=== PATIENT | female | born 1990 | race Two or more races ===

== ENCOUNTER 2017-02-15 23:34 | Emergency (ER) | payer MEDICAID, OTHER ==
[~2017-02-15] VITALS: Ht 154.9 cm; Wt 56.7 kg
[2017-02-16 01:01] LABS: Basophils # (auto) 0 uL; Basophils % (auto) 0.5 % (0.0-2.0); Eosinophils # (auto) 0.1 uL; Eosinophils % (auto) 1.5 % (0.0-7.0); Hematocrit 39.3 % (36.0-46.0); Lymphocytes # (auto) 1.6 uL; Lymphocytes % (auto) 16.5 % (10.0-50.0); Mean Corpuscular Hemoglobin 30.4 pg (28.0-32.0); Mean Corpuscular Volume 92.1 fL (80.0-100.0); Mean Platelet Volume 8.6 fL (7.4-10.4); Monocytes # (auto) 0.7 uL; Monocytes % (auto) 7.4 % (0.0-12.0); Neutrophils # (auto) 7.5 uL; Neutrophils % (auto) 74.1 % (37.0-80.0); Platelet Count (auto) 297 10^3/uL (140-450); Red Cell Distribution Width 13.4 % (11.6-16.0); White Blood Cell 9.9 10^3/uL (4.4-10.8)
[2017-02-16 01:20] LABS: Albumin 3.7 g/dL (3.4-5.0); BUN/Creatinine Ratio 14.5; Calcium 8.8 mg/dL (8.5-10.1); Potassium 3.4 mmol/L (3.5-5.1)
[2017-02-16 01:29] LABS: Bilirubin, Total 0.8 mg/dL (0.2-1.0); Total Protein 7.1 g/dL (6.4-8.2)
[2017-02-16 03:33] VITALS: BP 124/66
== END 2017-02-16 04:23 | disposition home or self-care (01) ==
LOC: EDBD 23:34 → ER 23:39
DX: F41.9 Anxiety disorder, unspecified (principal)
CPT/HCPCS: 36415; 71010; 80053; 84443; 85025; 93005

== ENCOUNTER 2020-03-23 05:10 | Emergency (ER) | payer SELFPAY ==
[~2020-03-23] VITALS: Ht 154.9 cm; Wt 77.1 kg
[2020-03-23 05:24] VITALS: BP 135/90
[2020-03-23] MEDS ORDERED: diphenhdrAMINE HCL 50 MG/1 ML VL IM ONE (07:15)
== END 2020-03-23 07:58 | disposition home or self-care (01) ==
LOC: ER 05:10
DX: F41.9 Anxiety disorder, unspecified (principal)
CPT/HCPCS: 71045; 96372; 99283; J1200

== ENCOUNTER 2021-03-29 02:36 | Emergency (ER) | payer MEDICAID ==
[~2021-03-29] VITALS: Ht 154.9 cm; Wt 68.0 kg
[2021-03-29] MEDS ORDERED: IBUPROFEN 600 MG TAB PO ONE (03:15)
[2021-03-29 11:05] VITALS: BP 132/78
== END 2021-03-29 11:13 | disposition home or self-care (01) ==
LOC: ER 02:36
DX: S69.81XA Other specified injuries of right wrist, hand and finger(s), initial encounter (principal); F41.9 Anxiety disorder, unspecified; Y04.2XXA Assault by strike against or bumped into by another person, initial encounter; Y93.89 Activity, other specified; Y92.89 Other specified places as the place of occurrence of the external cause; Y99.8 Other external cause status
CPT/HCPCS: 29125; 73110

== ENCOUNTER 2021-04-21 02:11 | Emergency (ER) | payer MEDICAID ==
[~2021-04-21] VITALS: Ht 154.9 cm; Wt 59.0 kg
[2021-04-21] MEDS ORDERED: ONDANSETRON ODT 4 MG TAB PO ONE (05:00)
[2021-04-21] MEDS ORDERED: HYDROcodone-ACET 10/325MG TAB PO ONE (05:00)
[2021-04-21 06:33] VITALS: BP 142/87
== END 2021-04-21 06:40 | disposition home or self-care (01) ==
LOC: ER 02:11
DX: M25.531 Pain in right wrist (principal)
CPT/HCPCS: Q0162

== ENCOUNTER 2021-06-15 04:02 | Emergency (ER) | payer MEDICAID ==
[~2021-06-15] VITALS: Ht 154.9 cm; Wt 54.4 kg
[2021-06-15 06:56] VITALS: BP 142/88
== END 2021-06-15 07:04 | disposition home or self-care (01) ==
LOC: ER 04:02
DX: F41.8 Other specified anxiety disorders (principal)

== ENCOUNTER 2021-09-22 21:36 | Emergency (ER) | payer MEDICAID ==
[~2021-09-22] VITALS: Ht 154.9 cm; Wt 54.4 kg
[2021-09-23 01:50] VITALS: BP 100/75
[2021-09-23 02:43] LABS: Basophils # (auto) 0.1 10 ^3/uL (0-0.2); Basophils % (auto) 0.7 % (0.0-2.0); Eosinophils # (auto) 0.1 10 ^3/uL (0-0.8); Hemoglobin 14.4 g/dL (12.2-16.2); Lymphocytes # (auto) 2.1 10 ^3/uL (0.4-5.4); Lymphocytes % (auto) 24.1 % (10.0-50.0); Mean Corpuscular Hemoglobin 32.7 pg (28.0-32.0); Mean Corpuscular Hgb Conc. 34.2 g/dL (32.0-36.0); Mean Corpuscular Volume 95.6 fL (80.0-100.0); Monocytes # (auto) 0.5 10 ^3/uL (0-1.3); Monocytes % (auto) 5.9 % (0.0-12.0); Neutrophils # (auto) 5.9 10 ^3/uL (1.6-8.6); Neutrophils % (auto) 68.3 % (37.0-80.0); Nucleated Red Blood Cells % 0.1 %; Red Blood Cells 4.39 10^6/uL (4.0-5.20); Red Cell Distribution Width 13.5 % (11.8-14.3); White Blood Cell 8.6 10^3/uL (4.4-10.8)
[2021-09-23 02:59] LABS: Albumin 4.6 g/dL (3.4-5.0); Anion Gap 8 (5-15); Aspartate Aminotransferase 12 U/L (15-37); BUN/Creatinine Ratio 24.6; Blood Alcohol < 3.0 mg/dL (0-5); Blood Urea Nitrogen 14 mg/dL (7-18); Calcium 8.8 mg/dL (8.5-10.1); Carbon Dioxide 23 mmol/L (21-32); Chloride 106 mmol/L (98-107); GFR African American 162 mL/min; GFR Non-African American 134 mL/min; Glucose 91 mg/dL (74-106); Potassium 4.1 mmol/L (3.5-5.1); Sodium 137 mmol/L (136-145)
[2021-09-23 03:02] LABS: Alanine Aminotransferase 28 U/L (13-56); Alkaline Phosphatase 63 U/L (45-117); Total Protein 8.1 g/dL (6.4-8.2)
[2021-09-23 03:56] LABS: Urine Bacteria FEW /hpf (None Seen); Urine Blood 2+ /uL (Negative); Urine Mucus MANY (None Seen); Urine Specific Gravity 1.034 (1.001-1.035); Urine WBC 5 /hpf (0 - 5)
[2021-09-23 04:08] LABS: Amphetamine Screen, Urine NEGATIVE (NEGATIVE); Barbiturate Scree,Urine NEGATIVE (NEGATIVE); Benzodiazephine Screen, Urine NEGATIVE (NEGATIVE); Cannabinoid Screen, Urine NEGATIVE (NEGATIVE); Cocaine Screen, Urine NEGATIVE (NEGATIVE); Opiate Scree,Urine NEGATIVE (NEGATIVE); Phencyclidine Screen, Urine NEGATIVE (NEGATIVE)
[2021-09-23] MEDS ORDERED: cefTRIAXone 1GM/50ML D5W 50 ML IV ONE (09:00)
== END 2021-09-23 09:56 | disposition left against medical advice (07) ==
LOC: ER 21:37
DX: R45.851 Suicidal ideations (principal); F41.8 Other specified anxiety disorders; N39.0 Urinary tract infection, site not specified; Z20.822 Contact with and (suspected) exposure to COVID-19
CPT/HCPCS: 36415; 71046; 80053; 80307; 80320; 81001; 84702; 85025; 87426; 87804

== ENCOUNTER 2022-04-11 00:18 | Emergency (ER) | payer MEDICAID ==
[~2022-04-11] VITALS: Ht 154.9 cm; Wt 54.4 kg
[2022-04-11 01:06] LABS: Basophils # (auto) 0.1 10 ^3/uL (0-0.2); Eosinophils # (auto) 0.2 10 ^3/uL (0-0.8); Eosinophils % (auto) 2.7 % (0.0-7.0); Hematocrit 41.8 % (36.0-46.0); Hemoglobin 14.5 g/dL (12.2-16.2); Lymphocytes # (auto) 1.8 10 ^3/uL (0.4-5.4); Lymphocytes % (auto) 21.8 % (10.0-50.0); Mean Corpuscular Hemoglobin 32.8 pg (28.0-32.0); Mean Corpuscular Hgb Conc. 34.5 g/dL (32.0-36.0); Monocytes # (auto) 0.5 10 ^3/uL (0-1.3); Monocytes % (auto) 6.2 % (0.0-12.0); Neutrophils # (auto) 5.7 10 ^3/uL (1.6-8.6); Neutrophils % (auto) 68.3 % (37.0-80.0); Red Blood Cells 4.41 10^6/uL (4.0-5.20); Red Cell Distribution Width 13.4 % (11.8-14.3); White Blood Cell 8.3 10^3/uL (4.4-10.8)
[2022-04-11 01:22] LABS: Salicylate < 1.7 mg/dL (2.8-20.0)
[2022-04-11 01:25] LABS: Alanine Aminotransferase 30 U/L (13-56); Albumin 4.3 g/dL (3.4-5.0); Anion Gap 7 (5-15); Aspartate Aminotransferase 15 U/L (15-37); BUN/Creatinine Ratio 15.6; Blood Alcohol < 3.0 mg/dL (0-5); Blood Urea Nitrogen 14 mg/dL (7-18); Calcium 9.5 mg/dL (8.5-10.1); Carbon Dioxide 26 mmol/L (21-32); Chloride 106 mmol/L (98-107); GFR African American 95 mL/min; GFR Non-African American 79 mL/min; Glucose 121 mg/dL (74-106); Sodium 139 mmol/L (136-145)
[2022-04-11 01:27] LABS: Alkaline Phosphatase 55 U/L (45-117); Bilirubin, Total 0.9 mg/dL (0.2-1.0); Total Protein 8.1 g/dL (6.4-8.2)
[2022-04-11 01:36] LABS: Acetaminophen < 2.0 ug/mL (10-30)
[2022-04-11] MEDS ORDERED: ALPRAZolam 0.5 MG TAB PO ONE (01:45)
[2022-04-11 02:34] LABS: Urine Bacteria FEW /hpf (None Seen); Urine Blood 2+ /uL (Negative); Urine Hyaline Cast FEW /lpf (0 - 2); Urine Mucus FEW (None Seen); Urine Specific Gravity 1.028 (1.001-1.035); Urine WBC 5 /hpf (0 - 5)
[2022-04-11] MEDS ORDERED: TRAZ-181 PO (17:21)
[2022-04-11] MEDS ORDERED: ESCI5TAB PO (17:21)
[2022-04-11] MEDS ORDERED: HYDR50CA PO (17:21)
[2022-04-11 17:31] VITALS: BP 110/70
== END 2022-04-11 17:45 | disposition home or self-care (01) ==
LOC: ER 00:18
DX: S70.311A Abrasion, right thigh, initial encounter (principal); F41.9 Anxiety disorder, unspecified; F32.9 Major depressive disorder, single episode, unspecified; F12.10 Cannabis abuse, uncomplicated; R94.31 Abnormal electrocardiogram [ECG] [EKG]; Z32.02 Encounter for pregnancy test, result negative; Z20.822 Contact with and (suspected) exposure to COVID-19; X78.8XXA Intentional self-harm by other sharp object, initial encounter; Y93.89 Activity, other specified; Y92.89 Other specified places as the place of occurrence of the external cause; Y99.8 Other external cause status
CPT/HCPCS: 36415; 71045; 80053; 80320; 80329; 81001; 81025; 85025; 93005

== ENCOUNTER 2022-04-20 19:16 | Emergency (ER) | payer MEDICAID ==
[~2022-04-20] VITALS: Ht 154.9 cm; Wt 59.0 kg
[~2022-04-20 19:16] MED LIST: ESCI5TAB PO; HYDR50CA PO; TRAZ-181 PO
[2022-04-20 20:00] VITALS: BP 110/81
[2022-04-20] MEDS ORDERED: LORazepam 0.5 MG TAB PO ONE (20:00)
[2022-04-20] MEDS ORDERED: ESCI5TAB PO (20:01)
== END 2022-04-20 19:46 | disposition home or self-care (01) ==
LOC: ER 19:16
DX: F41.8 Other specified anxiety disorders (principal); Z76.0 Encounter for issue of repeat prescription; Z79.899 Other long term (current) drug therapy

== ENCOUNTER 2022-07-25 22:11 | Emergency (ER) | payer MEDICAID ==
[~2022-07-25] VITALS: Ht 154.9 cm; Wt 59.0 kg
[2022-07-25 22:43] VITALS: BP 119/84
== END 2022-07-26 00:23 | disposition left against medical advice (07) ==
LOC: ER 22:11
DX: J02.9 Acute pharyngitis, unspecified (principal); Z53.21 Procedure and treatment not carried out due to patient leaving prior to being seen by health care provider

== ENCOUNTER 2022-11-15 10:43 | Emergency (ER) | payer MEDICAID ==
[~2022-11-15] VITALS: Ht 154.9 cm; Wt 59.0 kg
[2022-11-15 11:00] LABS: Basophils # (auto) 0.1 10 ^3/uL (0-0.2); Basophils % (auto) 1.2 % (0.0-2.0); Eosinophils # (auto) 0.2 10 ^3/uL (0-0.8); Eosinophils % (auto) 3.1 % (0.0-7.0); Hemoglobin 13.4 g/dL (12.2-16.2); Lymphocytes # (auto) 2.4 10 ^3/uL (0.4-5.4); Lymphocytes % (auto) 31.3 % (10.0-50.0); Mean Corpuscular Hemoglobin 31.4 pg (28.0-32.0); Mean Corpuscular Hgb Conc. 33.6 g/dL (32.0-36.0); Mean Corpuscular Volume 93.4 fL (80.0-100.0); Monocytes # (auto) 0.6 10 ^3/uL (0-1.3); Monocytes % (auto) 7.9 % (0.0-12.0); Neutrophils # (auto) 4.4 10 ^3/uL (1.6-8.6); Neutrophils % (auto) 56.5 % (37.0-80.0); Nucleated Red Blood Cells % 0.2 %; Red Blood Cells 4.28 10^6/uL (4.0-5.20); Red Cell Distribution Width 13.5 % (11.8-14.3); White Blood Cell 7.7 10^3/uL (4.4-10.8)
[2022-11-15 11:14] LABS: Albumin 4.1 g/dL (3.4-5.0); Calcium 9.1 mg/dL (8.5-10.1); Magnesium 2.6 mg/dL (1.6-2.6); Potassium 4.1 mmol/L (3.5-5.1)
[2022-11-15 11:17] LABS: BUN/Creatinine Ratio 22.4; Bilirubin, Total 0.7 mg/dL (0.2-1.0); Total Protein 7.6 g/dL (6.4-8.2)
[2022-11-15 11:20] LABS: INR 0.97 (0.9-1.15); Partial Thromboplastin Time 31.1 sec (24.6-33.4)
[2022-11-15 12:14] LABS: Urine Bacteria FEW /hpf (None Seen); Urine Blood 1+ /uL (Negative); Urine Mucus FEW (None Seen); Urine Specific Gravity 1.026 (1.001-1.035); Urine WBC 2 /hpf (0 - 5)
[2022-11-15 13:39] VITALS: BP 105/75
== END 2022-11-15 13:41 | disposition home or self-care (01) ==
LOC: ER 10:48
DX: R07.89 Other chest pain (principal); F12.10 Cannabis abuse, uncomplicated; Z79.899 Other long term (current) drug therapy; Z32.02 Encounter for pregnancy test, result negative
CPT/HCPCS: 36415; 71046; 80053; 81001; 81025; 83735; 84484; 85025; 85610; 85730; 93005

== ENCOUNTER 2024-05-28 03:58 | Emergency (ER) | payer MEDICAID ==
[~2024-05-28] VITALS: Ht 180.3 cm; Wt 69.4 kg
[2024-05-28 06:36] VITALS: BP 128/79; PULSE 72; RESP 18; TEMP 98.8; O2SAT 96
[2024-05-28] MEDS: KETOROLAC TROMETH 60MG/2ML VIAL IM ONE (06:40)
[2024-05-28] MEDS ORDERED: SUMA50TA2 PO (07:12)
[2024-05-28] MEDS ORDERED: CLIN1CAP70 PO (07:12)
== END 2024-05-28 07:25 | disposition home or self-care (01) ==
LOC: ER 03:58
DX: G44.209 Tension-type headache, unspecified, not intractable (principal); K04.7 Periapical abscess without sinus; F41.9 Anxiety disorder, unspecified; F32.9 Major depressive disorder, single episode, unspecified; F15.90 Other stimulant use, unspecified, uncomplicated; Z79.899 Other long term (current) drug therapy
CPT/HCPCS: 96372; 99283; J1885

== ENCOUNTER 2024-09-03 23:20 | Emergency (ER) | payer MEDICAID ==
[~2024-09-03] VITALS: Ht 154.9 cm; Wt 73.1 kg
[~2024-09-03 23:20] MED LIST changes: +CLIN1CAP70 PO; +SUMA50TA2 PO
--- NOTE | 2024-09-03 23:50 | ED.PDOC ---
History of Present Illness HPI Comments 33-year-old female came to ER for flu-like symptoms. Patient states for the past week, she has been having flu-like symptoms including fever, chills, weakness, dizziness, body malaise, muscle and joint pains, chest discomfort, shortness of breath, cough, congestion, and throat pain. Persistence and worsening prompted checkup. Chief Complaint: Flu like Time Seen by MD: 23:50 Primary Care Provider: NONE Reviewed Notes: Nurses Notes Allergies: Coded Allergies: NO KNOWN ALLERGIES (Unverified , 03/29/21) Home Meds Active Scripts Sumatriptan Succinate (Imitrex) 50 Mg Tab, 1 TAB PO BID, #14 TAB Prov:ROSALIE CHOUDHARY 05/28/24 Clindamycin Hcl (Clindamycin Hcl) 300 Mg Cap, 1 CAP PO TID, #21 CAP Prov:ROSALIE CHOUDHARY 05/28/24 Escitalopram Oxalate (Lexapro) 5 Mg Tab, 1 TAB PO DAILY, #30 TAB 1 Refill Prov:ARIES LOPEZ MD 04/20/22 Hydroxyzine Pamoate (Vistaril) 50 Mg Cap, 50 MG PO Q6HPRN PRN for 7 Days, #28 CAP 0 Refills Prov:BEATRICE ABREU MD 04/11/22 Trazodone HCl (Trazodone Hydrochloride) 50 Mg Tab, 50 MG PO QHS for 7 Days, #7 TAB 0 Refills Prov:BEATRICE ABREU MD 04/11/22 Escitalopram Oxalate (Lexapro) 5 Mg Tab, 1 TAB PO DAILY for 7 Days, #7 TAB 0 Refills Prov:BEATRICE ABREU MD 04/11/22 Information Source: Patient Mode of Arrival: Ambulatory Severity: Moderate Timing: Days Duration: Intermittent Prehospital treatment: None Past Medical History PAST MEDICAL HISTORY: Anxiety, Depression Surgical History: Denies all surgeries LADLE PATCHER History: No Pertinent LADLE PATCHER History Family History Family History: Family hx of DM Social History Smoker: Non-Smoker Alcohol: Denies ETOH Use Drugs: Denies Drug Use Lives In: Home Constitutional: reports: chills, diaphoresis, fatigue, fever, malaise, weakness ; denies: sweats, others EENTM: reports: nose congestion, throat pain; denies: blurred vision, double vision, ear bleeding, ear discharge, ear drainage, ear pain, ear ringing, eye pain, eye redness, hearing loss, mouth pain, mouth swelling, nasal discharge, nose bleeding, nose pain, photophobia, tearing, throat swelling, voice changes, others Respiratory: reports: cough, SOB at rest; denies: hemoptysis, orthopnea, s hortness of breath, SOB with excertion, stridor, wheezing, others Cardiovascular: reports: chest pain; denies: dizzy spells, diaphoresis, Dyspnea on exertion, edema, irregular heart beat, left arm pain, lightheadedness, palpitations, PND, syncope, others Gastrointestinal: reports: nausea; denies: abdomen distended, abdominal pain, blood streaked bowels, constipated, diarrhea, dysphagia, difficulty swallowing, hematemesis, melena, poor appetite, poor fluid intake, rectal bleeding, rectal pain, vomiting, others Genitourinary: denies: abnormal vagina bleeding, burning, dyspareunia, dysuria, flank pain, frequency, hematuria, incontinence, pain, , vagina discharge, urgency, others Neurological: denies: dizziness, fainting, headache, left sided numbness, left sided weakness, numbness, paresthesia, pre-existing deficit, right sided numbness, right sided weakness, seizure, speech problems, tingling, tremors, weakness, others Musculoskeletal: denies: back pain, gout, joint pain, joint swelling, muscle pain, muscle stiffness, neck pain, others Integumetry: denies: bruises, change in color, change in hair/nails, dryness, laceration, lesions, lumps, rash, wounds, others Allergic/Immunocompromised: denies: Difficulty Healing, Frequent Infections, Hives, Itching, others Hematologic/Lymphatic: denies: anemia, blood clots, easy bleeding, easy bruising, swollen glands, others Endocrine: denies: excessive hunger, excessive sweating, excessive thirst, excessive urination, flushing, intolerance to cold, intolerance to heat, unexplained weight gain, unexplained weight loss, others Psychiatric: denies: anxiety, bipolar disorder, depression, hopeless, panic disorder, schizophrenia, sleepless, suicidal, others Physical Exam General Appearance: No Apparent Distress, Normal HEENT: Normal ENT Inspection, Pharynx Normal, TMs Normal Neck: Full Range of Motion, Non-Tender, Normal, Normal Inspection Respiratory: Chest Non-Tender, Lungs Clear, No Accessory Muscle Use, No Respiratory Distress, Normal Breath Sounds Cardiovascular: No Edema, No JVD, No Murmur, No Gallop, Normal Peripheral Pulses, Regular Rate/Rhythm Breast Exam: Deferred Gastrointestinal: No Organomegaly, Non Tender, No Pulsatile Mass, Normal Bowel Sounds, Soft Genitalia: Deferred Pelvic: Deferred Rectal: Deferred Extremities: No calf tenderness, Normal capillary refill, Normal inspection, Normal range of motion, Non-tender, No pedal edema Musculoskeletal : Apperance: Normal Neurologic: Alert, 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 Was a procedure done?: No Differential Dx Considerations may include: Anemia, electrolyte imbalance, influenza, COVID-19, upper respiratory infection X-Ray, Labs, Meds, VS Vital Signs Date Time Temp Pulse Resp B/P (MAP) Pulse Ox O2 Delivery O2 Flow Rate FiO2 09/04/24 00:05 98.5 100 18 127/88 (101) 96 98.5 09/04/24 00:05 18 Room Air* 0 21 09/03/24 23:33 98.5 100 18 127/88 (101) 96 Lab Test 09/04/24 00:15 09/03/24 23:30 Range/Units Influenza Type A Antigen Negative Negative Influenza Type B Antigen Positive Negative SARS-CoV-2 Antigen (Rapid) Negative NEGATIVE White Blood Count 3.9 L 4.4-10.8 10^3/uL Red Blood Count 4.24 4.0-5.20 10^6/uL Hemoglobin 14.0 12.2-16.2 g/dL Hematocrit 40.5 36.0-46.0 % Mean Corpuscular Volume 95.6 80.0-100.0 fL Mean Corpuscular Hemoglobin 33.1 H 28.0-32.0 pg Mean Corpuscular Hemoglobin Concent 34.6 32.0-36.0 g/dL Red Cell Distribution Width 13.4 11.8-14.3 % Platelet Count 234 140-450 10^3/uL Mean Platelet Volume 8.6 6.9-10.8 fL Neutrophils (%) (Auto) 56.4 37.0-80.0 % Lymphocytes (%) (Auto) 28.6 10.0-50.0 % Monocytes (%) (Auto) 12.6 H 0.0-12.0 % Eosinophils (%) (Auto) 0.9 0.0-7.0 % Basophils (%) (Auto) 1.5 0.0-2.0 % Neutrophils # (Auto) 2.2 1.6-8.6 10 ^3/uL Lymphocytes # (Auto) 1.1 0.4-5.4 10 ^3/uL Monocytes # (Auto) 0.5 0-1.3 10 ^3/uL Eosinophils # (Auto) 0 0-0.8 10 ^3/uL Basophils # (Auto) 0.1 0-0.2 10 ^3/uL Nucleated Red Blood Cells 0.1 % Sodium Level 138 136-145 mmol/L Potassium Level 3.6 3.5-5.1 mmol/L Chloride Level 104 98-107 mmol/L Carbon Dioxide Level 28 20-31 mmol/L Anion Gap 6 5-15 Blood Urea Nitrogen 7 L 9-23 mg/dL Creatinine 0.80 0.550-1.02 mg/dL Glomerular Filtration Rate Calc 101 >90 mL/min BUN/Creatinine Ratio 8.8 L 10.0-20.0 Serum Glucose 101 74-106 mg/dL Calcium Level 9.9 8.7-10.4 mg/dL Current Medications Medications (Trade) Dose Ordered Sig/Radha Route Start Time Stop Time Status Last Admin Famotidine (Pepcid Tablet) 20 mg ONCE ONCE PO 09/03/24 23:45 09/03/24 23:48 DC 09/04/24 00:04 Acetaminophen (Tylenol Tablet) 650 mg ONCE ONCE PO 09/03/24 23:45 09/03/24 23:48 DC 09/04/24 00:04 Ondansetron HCl (Zofran Po) 4 mg ONCE ONCE PO 09/03/24 23:45 09/03/24 23:48 DC 09/04/24 00:04 Ketorolac Tromethamine (Toradol Injection) 15 mg ONCE ONCE IM 09/03/24 23:45 09/03/24 23:48 DC 09/04/24 00:05 Time of 1ST Reevaluation: 23:46 Reevaluation 1ST: Unchanged Patient Education/Counseling: Diagnosis, Treatment Family Education/Counseling: No Family Present Departure 1 Departure Time of Disposition: 01:14 (Patient is positive with flu B. we will discharge patient home with outpatient follow up) Impression: Primary Impression: Influenza B Additional Impression: Viral syndrome Disposition: 01 HOME / SELF CARE / HOMELESS Condition: Stable Additional Instructions: You have influenza B. It is important to stay well rested and well hydrated. You can take Tylenol and Motrin as needed for pain and fever. For a sore throat you can drink warm tea with honey. You can take [id number] pseudoephedrine for nasal congestion. He should follow up with your regular doctor within 1 week to ensure you are doing better. If your symptoms worsen or you have any other concerns please return to the emergency room. Discharged With: Self Critical Care Note Critical Care Time?: No Stability Stability form required: No Heart Score Heart Score: Heart Score Response (Comments) Value History N/A 0 EKG N/A 0 Age N/A 0 Risk Factors N/A 0 Troponin N/A 0 Total 0 I personally scribed for RYAN WILKES MD ([email or web address]) on 09/03/24 at 23:50. Electronically submitted by Juan Redmond ([email or web address]). RYAN WILKES MD Sep 03, 2024 23:50
[2024-09-04 00:03] LABS: Basophils # (auto) 0.1 10 ^3/uL (0-0.2); Basophils % (auto) 1.5 % (0.0-2.0); Eosinophils # (auto) 0 10 ^3/uL (0-0.8); Eosinophils % (auto) 0.9 % (0.0-7.0); Hematocrit 40.5 % (36.0-46.0); Lymphocytes # (auto) 1.1 10 ^3/uL (0.4-5.4); Lymphocytes % (auto) 28.6 % (10.0-50.0); Mean Corpuscular Hemoglobin 33.1 pg (28.0-32.0); Mean Corpuscular Hgb Conc. 34.6 g/dL (32.0-36.0); Mean Corpuscular Volume 95.6 fL (80.0-100.0); Monocytes # (auto) 0.5 10 ^3/uL (0-1.3); Monocytes % (auto) 12.6 % (0.0-12.0); Neutrophils # (auto) 2.2 10 ^3/uL (1.6-8.6); Neutrophils % (auto) 56.4 % (37.0-80.0); Nucleated Red Blood Cells % 0.1 %; Platelet Count (auto) 234 10^3/uL (140-450); Red Blood Cells 4.24 10^6/uL (4.0-5.20); Red Cell Distribution Width 13.4 % (11.8-14.3); White Blood Cell 3.9 10^3/uL (4.4-10.8)
[2024-09-04] MEDS: ACETAMINOPHEN 325 MG TAB PO ONE (00:04)
[2024-09-04] MEDS: FAMOTIDINE 20 MG TAB PO ONE (00:04)
[2024-09-04] MEDS: ONDANSETRON ODT 4 MG TAB PO ONE (00:04)
[2024-09-04 00:05] VITALS: BP 127/88; PULSE 100; RESP 18; TEMP 98.5; O2SAT 96
[2024-09-04] MEDS: KETOROLAC TROMETH 30 MG/ML 1ML VIAL IM ONE (00:05)
[2024-09-04 00:13] LABS: Chloride 104 mmol/L (98-107); Potassium 3.6 mmol/L (3.5-5.1); Sodium 138 mmol/L (136-145)
[2024-09-04 00:14] LABS: Anion Gap 6 (5-15); Calcium 9.9 mg/dL (8.7-10.4); Carbon Dioxide 28 mmol/L (20-31)
[2024-09-04 00:19] LABS: BUN/Creatinine Ratio 8.8 (10.0-20.0); Blood Urea Nitrogen 7 mg/dL (9-23); Glucose 101 mg/dL (74-106)
[2024-09-04 00:52] LABS: COVID19 ANTIGEN SOFIA FIA NEGATIVE (NEGATIVE)
[2024-09-04 00:54] LABS: Rapid Influenza A Negative (Negative)
[2024-09-04 00:56] LABS: Rapid Influenza B Positive (Negative)
--- NOTE | 2024-09-04 01:03 | DVH ---
Procedure: XY CHEST TWO VIEWS ROUTINE 09/04/2024 12:37 AM Indication: chest pain, cough. Comparison: CHEST TWO VIEWS ROUTINE on DOS: 11/15/22, CXR2 on DOS: 11/15/22, CHEST TWO VIEWS ROUTINE on DOS: 09/22/21 TECHNIQUE: XY CHEST TWO VIEWS ROUTINE FINDINGS: Medical devices: None. Cardiomediastinal: The heart is normal in size. Pulmonary vasculature is within normal limits. Lungs: No focal pulmonary opacity is seen. The costophrenic angles are clear. No pneumothorax. Bones/soft tissues: No acute abnormality is noted. IMPRESSION: No acute cardiopulmonary disease.
== END 2024-09-04 01:30 | disposition home or self-care (01) ==
LOC: ER 23:20
DX: J10.1 Influenza due to other identified influenza virus with other respiratory manifestations (principal); F41.9 Anxiety disorder, unspecified; F32.A Depression, unspecified; Z79.899 Other long term (current) drug therapy; Z20.822 Contact with and (suspected) exposure to COVID-19
CPT/HCPCS: 36415; 71046; 80048; 85025; 87426; 87804; 96372; 99284; J1885; Q0162

== ENCOUNTER 2025-02-05 03:50 | Emergency (ER) | payer MEDICAID ==
[~2025-02-05] VITALS: Ht 154.9 cm; Wt 74.4 kg
--- NOTE | 2025-02-05 04:01 | ED.PDOC ---
HPI Allergic reaction HPI Comments This is a 34-year-old female presents to the ED chief complaint possible allergic reaction. Patient states around 4:00 p.m. she received steroid injection by a orthopedic surgeon for her wrist pain. When she got home she started feeling flush, rapid heart rate, anxious, and difficulty sleeping. Denies chest pain, shortness of breath, difficulty breathing, throat swelling, tongue swelling, nausea or vomiting. Time Seen by MD: 03:56 Primary Care Provider: NONE Reviewed Notes: Nurses Notes, Medications, Allergies Allergies: Coded Allergies: NO KNOWN ALLERGIES (Unverified , 03/29/21) Home Meds Active Scripts Sumatriptan Succinate (Imitrex) 50 Mg Tab, 1 TAB PO BID, #14 TAB Prov:ROSALIE CHOUDHARY 05/28/24 Clindamycin Hcl (Clindamycin Hcl) 300 Mg Cap, 1 CAP PO TID, #21 CAP Prov:ROSALIE CHOUDHARY 05/28/24 Escitalopram Oxalate (Lexapro) 5 Mg Tab, 1 TAB PO DAILY, #30 TAB 1 Refill Prov:ARIES LOPEZ MD 04/20/22 Hydroxyzine Pamoate (Vistaril) 50 Mg Cap, 50 MG PO Q6HPRN PRN for 7 Days, #28 CAP 0 Refills Prov:BEATRICE ABREU MD 04/11/22 Trazodone HCl (Trazodone Hydrochloride) 50 Mg Tab, 50 MG PO QHS for 7 Days, #7 TAB 0 Refills Prov:BEATRICE ABREU MD 04/11/22 Escitalopram Oxalate (Lexapro) 5 Mg Tab, 1 TAB PO DAILY for 7 Days, #7 TAB 0 Refills Prov:BEATRICE ABREU MD 04/11/22 Information Source: Patient Past Medical History PAST MEDICAL HISTORY: Anxiety, Depression Surgical History: Denies all surgeries SALES REPRESENTATIVE GROCERIES History: No Pertinent SALES REPRESENTATIVE GROCERIES History Family History Family History: Family hx of DM Social History Smoker: Non-Smoker Alcohol: Denies ETOH Use Drugs: Denies Drug Use Lives In: Home Constitutional: denies: chills, diaphoresis, fatigue, fever, malaise, sweats, weakness, others EENTM: denies: blurred vision, double vision, ear bleeding, ear discharge, ear drainage, ear pain, ear ringing, eye pain, eye redness, hearing loss, mouth pain, mouth swelling, nasal discharge, nose bleeding, nose congestion, nose pain, photophobia, tearing, throat pain, throat swelling, voice changes, others Respiratory: denies: cough, hemoptysis, orthopnea, SOB at rest, shortness of breath, SOB with excertion, stridor, wheezing, others Cardiovascular: reports: dizzy spells, palpitations; denies: chest pain, diaphoresis, Dyspnea on exertion, edema, irregular heart beat, left arm pain, lightheadedness, PND, syncope, others Gastrointestinal: denies: abdomen distended, abdominal pain, blood streaked bowels, constipated, diarrhea, dysphagia, difficulty swallowing, hematemesis, melena, nausea, poor appetite, poor fluid intake, rectal bleeding, rectal pain, vomiting, others Genitourinary: denies: abnormal vagina bleeding, burning, dyspareunia, dysuria, flank pain, frequency, hematuria, incontinence, pain, , vagina discharge, urgency, others Neurological: denies: dizziness, fainting, headache, left sided numbness, left sided weakness, numbness, paresthesia, pre-existing deficit, right sided numbness, right sided weakness, seizure, speech problems, tingling, tremors, weakness, others Musculoskeletal: denies: back pain, gout, joint pain, joint swelling, muscle pain, muscle stiffness, neck pain, others Integumetry: denies: bruises, change in color, change in hair/nails, dryness, laceration, lesions, lumps, rash, wounds, others Allergic/Immunocompromised: denies: Difficulty Healing, Frequent Infections, Hives, Itching, others Hematologic/Lymphatic: denies: anemia, blood clots, easy bleeding, easy bruising, swollen glands, others Endocrine: denies: excessive hunger, excessive sweating, excessive thirst, excessive urination, flushing, intolerance to cold, intolerance to heat, unexplained weight gain, unexplained weight loss, others Psychiatric: reports: anxiety; denies: bipolar disorder, depression, hopeless, panic disorder, schizophrenia, sleepless, suicidal, others Physical Exam General Appearance: No Apparent Distress, Normal HEENT: Pharynx Normal Neck: Full Range of Motion, Non-Tender Respiratory: Lungs Clear, No Respiratory Distress, Normal Breath Sounds Cardiovascular: No Edema, No JVD, No Murmur, No Gallop, Normal Peripheral Pulses, Regular Rate/Rhythm Breast Exam: Deferred Gastrointestinal: No Organomegaly, Non Tender, No Pulsatile Mass, Normal Bowel Sounds, Soft Genitalia: Deferred Pelvic: Deferred Rectal: Deferred Extremities: Normal capillary refill, Normal inspection, Normal range of motion, Non-tender, No pedal edema Musculoskeletal : Apperance: Normal Neurologic: Alert, 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 Was a procedure done?: No Differential diagnosis (all) Differential Diagnosis: Anaphylaxis, Angioedema, Drug Reaction, Shock, Urticaria X-Ray, Labs, Meds, VS Comment Likely side effects of the steroid. We will give patient trial of hydroxyzine. Advised to rest increase p.o. fluids with electrolytes. Call orthopedic doctor schedule follow up symptoms persist or return here in the ER for any concerning symptoms such as difficulty breathing, shortness of breath, chest pain or any other concerning symptoms patient indicates understanding agrees with discharge plan of care Time of 1ST Reevaluation: 04:01 Reevaluation 1ST: Unchanged Time of 2ND Reevaluation: 04:20 Reevaluation 2ND: Improved Patient Education/Counseling: Diagnosis, Treatment, Prognosis, Need For Follow Up Family Education/Counseling: Diagnosis, Treatment, Prognosis, Need For Follow Up Departure 1 Departure Time of Disposition: 04:20 Impression: Primary Impression: Medication side effects Disposition: 01 HOME / SELF CARE / HOMELESS Condition: Stable Discharged With: Relative Critical Care Note Critical Care Time?: No Stability Stability form required: OMID Monroy Feb 05, 2025 04:01
[2025-02-05] MEDS: hydrOXYzine 25 MG TAB or CAP PO ONE (04:56)
[2025-02-05 04:57] VITALS: BP 146/92; PULSE 108; RESP 16; TEMP 98.7; O2SAT 97
== END 2025-02-05 05:12 | disposition home or self-care (01) ==
LOC: ER 03:50
DX: F41.9 Anxiety disorder, unspecified (principal); T38.0X5A Adverse effect of glucocorticoids and synthetic analogues, initial encounter; M25.531 Pain in right wrist; R00.2 Palpitations; G47.9 Sleep disorder, unspecified; F32.A Depression, unspecified; Z79.899 Other long term (current) drug therapy; Y92.89 Other specified places as the place of occurrence of the external cause